=== PATIENT | female | born 1945 | race Caucasian/White ===

== ENCOUNTER 2018-10-06 05:40 | Day surgery (SDC) | payer OTHER, MEDICAID ==
[~2018-10-06] VITALS: Ht 149.9 cm; Wt 84.8 kg
[2018-10-06] MEDS ORDERED: CEFAZOLIN 2 GM IVPB PREMIX 50 ML IV ONE (08:00)
[2018-10-06] MEDS ORDERED: SEVOFLURANE 15 MIN GAS INH ONE (08:05)
[2018-10-06] MEDS ORDERED: ePHEDrine sulfate 50 MG/ML VIAL IVP ONE (08:05)
[2018-10-06] MEDS ORDERED: BACITRACIN ZINC 15 GM TOPICAL OINTMENT TP ONE (08:05)
[2018-10-06] MEDS ORDERED: ONDANSETRON HCL 4 MG/2 ML VIAL IVP ONE (08:05)
[2018-10-06] MEDS ORDERED: LR 1,000 ML IV.SOLN IV ONE (08:05)
[2018-10-06] MEDS ORDERED: MIDAZOLAM HCL 5 MG/5 ML VIAL IVP ONE (08:05)
[2018-10-06] MEDS ORDERED: fentaNYL CITRATE 250 MCG/5 ML AMP IV ONE (08:05)
[2018-10-06] MEDS ORDERED: LIDOCAINE/EPI 1% 1:100000 20 ML VIAL INJ ONE (08:05)
[2018-10-06] MEDS ORDERED: PROPOFOL 200MG/ 20ML VIAL (DIPRIVAN) IV ONE (08:05)
[2018-10-06] MEDS ORDERED: NS IRRIG SOLN 1000 ML IR ONE (08:05)
[2018-10-06] MEDS ORDERED: DEXAMETHASONE SOD PHOSPHATE 4 MG/ML VIAL IVP ONE (08:05)
[2018-10-06] MEDS ORDERED: SUCCINYLCHOLINE CHLORIDE 20 MG/ML(QUELICIN) IVP ONE (08:05)
[2018-10-06] MEDS ORDERED: LR 1,000 ML IV SCH (10:12)
[2018-10-06] MEDS ORDERED: METOCLOPRAMIDE HCL 10 MG/2 ML VIAL IVP PRN (10:15)
[2018-10-06] MEDS ORDERED: MEPERIDINE HCL/PF 50 MG/ML AMP IVP PRN ×2 (10:15)
[2018-10-06] MEDS ORDERED: MEPERIDINE HCL/PF 25 MG/ML DISP.SYRIN IVP PRN (10:15)
[2018-10-06] MEDS ORDERED: ONDANSETRON HCL 4 MG/2 ML VIAL IVP PRN (11:00)
[2018-10-06] MEDS ORDERED: ONDANSETRON 4 MG ODT TAB PO PRN (11:00)
[2018-10-06] MEDS ORDERED: HYDROcodone/ACETAMIN 5-325 MG TAB (NORCO/ VICODIN) PO PRN (11:00)
[2018-10-06 12:45] VITALS: BP_SYST 128
== END 2018-10-06 12:45 | disposition home or self-care (01) ==
LOC: SDS 05:40
PROVIDERS: ATTEND Otolaryngology
DX: E04.2 Nontoxic multinodular goiter (principal); I10 Essential (primary) hypertension; Z98.51 Tubal ligation status; Z88.8 Allergy status to other drugs, medicaments and biological substances; E66.01 Morbid (severe) obesity due to excess calories; G40.909 Epilepsy, unspecified, not intractable, without status epilepticus; M81.0 Age-related osteoporosis without current pathological fracture
CPT/HCPCS: 60220; 88307; J0690; J7120; C1782; J0330; J1100; J2250; J2405; J2704; J3010